=== PATIENT | female | born 1980 | race Caucasian/White ===

== ENCOUNTER 2020-10-08 16:47 | Outpatient (CLI) | payer OTHER, SELFPAY ==
[2020-10-15 15:07] LABS: ALT 20 U/L (6-29); Alpha-2-Macroglobulin 178 mg/dL (106-279); Apolipoprotein A1 168 mg/dL (101-198); Fibrosis Score 0.05; Fibrosis Stage F0; GGT 22 U/L (3-55); Haptoglobin 200 mg/dL (43-212); Necroinflammat Act Grade A0; Total Bilirubin 0.3 mg/dL (0.2-1.2)
== END 2020-10-08 16:48 | disposition home or self-care (01) ==
PROVIDERS: PCP Internal Medicine; Visit Provider Podiatrist Foot & Ankle Surgery
DX: B35.1 Tinea unguium (principal)
CPT/HCPCS: 36415; 81596

== ENCOUNTER 2021-04-08 15:54 | Outpatient (CLI) | payer OTHER, SELFPAY ==
--- NOTE | ~2021-04-08 | US_ITS ---
EXAMINATION: US pelvic complete w TV DATE: 04/08/2021 16:56 INDICATION: Abnormal uterine bleeding Comparison:No prior studies for comparison. TECHNIQUE: Multiple transabdominal and endovaginal sonographic images of the pelvis performed. FINDINGS: The uterus measures 12.3 x 4.8 x 7.2 cm. The endometrial complex measures 9 mm. The right ovary measures 2.2 x 1.3 x 1.9 cm and the left ovary measures 2.1 x 1.4 x 1.4 cm. There ar e small follicles in each ovary. Normal doppler signal in both ovaries. There is no free fluid in the pelvis. There are no abnormal masses seen on either side. IMPRESSION: 1. Enlarged uterus. Otherwise, unremarkable pelvic ultrasound. Reviewed, dictated and finalized at location A.
[2021-04-08 17:17] LABS: Hematocrit 33.2 % (37.0-47.0); Hemoglobin 10.4 g/dL (12.0-15.0); Mean Corpuscular HGB Conc 31.3 g/dl (32-36); Mean Corpuscular Hemoglobin 25.5 pg (26-34); Mean Corpuscular Volume 81.4 fl (80-100); Mean Platelet Volume 9.8 fl (7.4-10.4); Platelet Count Result 356 k/mm3 (150-375); Red Blood Count 4.08 M/mm3 (4.2-5.4); Red Cell Distribution Width 13.5 % (11.5-14.5)
[2021-04-08 17:58] LABS: Thyroid Stimulating Hormone 0.916 uIU/mL (0.465-4.680)
[2021-04-08 18:20] LABS: Free T4 Free Thyroxine 0.97 ng/mL (0.78-2.19)
== END 2021-04-08 15:55 | disposition home or self-care (01) ==
PROVIDERS: PCP Internal Medicine; Visit Provider Nurse Practitioner
DX: N93.8 Other specified abnormal uterine and vaginal bleeding (principal); N85.2 Hypertrophy of uterus
CPT/HCPCS: 36415; 76830; 76856; 84439; 84443; 85027

== ENCOUNTER 2023-01-19 06:54 | Outpatient (CLI) | payer OTHER, SELFPAY ==
[2023-01-19 07:37] LABS: Hemoglobin 11.9 g/dL (12.0-15.0); Mean Corpuscular HGB Conc 31.3 g/dl (32-36); Mean Corpuscular Hemoglobin 26.2 pg (26-34); Mean Corpuscular Volume 83.5 fl (80-100); Mean Platelet Volume 9.8 fl (7.4-10.4); Platelet Count Result 306 k/mm3 (150-375); Red Blood Count 4.55 M/mm3 (4.2-5.4); Red Cell Distribution Width 13.9 % (11.5-14.5); White Blood Count 7.6 K/mm3 (4.5-10.0)
[2023-01-19 07:46] LABS: Alanine Aminotransferase 68 U/L (6-35); Albumin Level 4.5 g/dL (3.5-5.1); Alkaline Phosphatase 88 U/L (38-126); Anion Gap 6 mmol/L (8-16); Aspartate Amino Transferase 49 U/L (14-36); Bilirubin,Total 0.6 mg/dL (0.2-1.3); Blood Urea Nitrogen 18 mg/dL (7-17); Calcium 9.1 mg/dL (8.4-10.2); Carbon Dioxide 29 mmol/L (22-30); Chloride 104 mmol/L (98-107); Cholesterol 196 mg/dL (0-200); Estimated Glomerular Filt Rate > 60; Glucose 128 mg/dL (65-110); HDL Direct 49 mg/dL; Potassium 4.4 mmol/L (3.4-5.0); Sodium 139 mmol/L (137-145); Triglycerides 126 mg/dL (<150)
[2023-01-19 07:56] LABS: LDL Cholesterol Direct 114 mg/dL
[2023-01-19 08:11] LABS: Hemoglobin A1C 6.7 % (<5.7)
[2023-01-19 08:16] LABS: Thyroid Stimulating Hormone 0.866 uIU/mL (0.465-4.680)
[2023-01-19 08:29] LABS: Free T4 Free Thyroxine 1.07 ng/mL (0.78-2.19); Vitamin D 25 Hydroxy 29.6 ng/mL
== END 2023-01-19 06:55 | disposition home or self-care (01) ==
LOC: ANHLAB 06:57
PROVIDERS: PCP Internal Medicine; Visit Provider Obstetrics & Gynecology Gynecology
DX: Z01.419 Encounter for gynecological examination (general) (routine) without abnormal findings (principal)
CPT/HCPCS: 36415; 80053; 80061; 82306; 82607; 83036; 84439; 84443; 85027

== ENCOUNTER 2023-02-22 07:58 | Outpatient (CLI) | payer OTHER, SELFPAY ==
--- NOTE | ~2023-02-22 | MM_ITS ---
EXAMINATION: MM screening germania BI w mario HISTORY: Screening mammogram, family history of breast cancer in her mother. TECHNIQUE: Craniocaudal and mediolateral oblique 3-D tomosynthesis images were obtained and synthetic 2-D images were generated. CAD analysis was submitted and interpreted. COMPARISON: 05/18/2019, 01/20/2016, 01/11/2015, 01/02/2015 BREAST PARENCHYMAL COMPOSITION: There are scattered areas of fibroglandular density. FINDINGS: There is stable focal asymmetry in the posterior third of the right breast. No suspicious m ass, calcification, or architectural distortion are identified in either breast to suggest malignancy . There has been no suspicious interval change. IMPRESSION: 1. No mammographic evidence of malignancy. 2. Recommend routine screening mammography in one year. BI-RADS Category 2: Benign finding(s). Reviewed, dictated and finalized at location A.
== END 2023-02-22 07:59 | disposition home or self-care (01) ==
LOC: ANHIMG 08:00
PROVIDERS: PCP Internal Medicine; Visit Provider Obstetrics & Gynecology Gynecology
DX: Z12.31 Encounter for screening mammogram for malignant neoplasm of breast (principal)
CPT/HCPCS: 77063; 77067

== ENCOUNTER 2024-08-19 06:54 | Outpatient (CLI) | payer OTHER, SELFPAY ==
[2024-08-19 08:12] LABS: Basophils Percent Auto 0.5 % (0.2-1.2); Eosinophils Absolute Auto 0.3 K/mm3 (0-0.3); Eosinophils Percent Auto 3.5 % (0-4.4); Hematocrit 39.8 % (37.0-47.0); Hemoglobin 11.8 g/dL (12.0-15.0); Immature Granulocyte Absolute 0.03 K/mm3 (0.00-0.031); Immature Granulocyte Percent A 0.4 % (0-0.5); Lymphocytes Absolute Auto 2.82 K/mm3 (0.9-3.2); Lymphocytes Percent Auto 36.1 % (18.3-44.2); Mean Corpuscular HGB Conc 29.6 g/dl (32-36); Mean Corpuscular Volume 77.4 fl (80-100); Mean Platelet Volume 9.9 fl (7.4-10.4); Monocytes Absolute Auto 0.7 K/mm3 (0.1-0.6); Monocytes Percent Auto 8.3 % (2.6-8.5); Neutrophils Percent Auto 51.2 % (45.5-73.1); Platelet Count Result 367 k/mm3 (150-375); Red Blood Count 5.14 M/mm3 (4.2-5.4); Red Cell Distribution Width 16.7 % (11.5-14.5); White Blood Count 7.8 K/mm3 (4.5-10.0)
[2024-08-19 08:27] LABS: Alanine Aminotransferase 38 U/L (6-35); Albumin Level 4.7 g/dL (3.5-5.1); Alkaline Phosphatase 88 U/L (38-126); Anion Gap 10 mmol/L (4-12); Aspartate Amino Transferase 33 U/L (14-36); Bilirubin,Total 0.2 mg/dL (0.2-1.3); Blood Urea Nitrogen 18 mg/dL (7-17); Calcium 9.6 mg/dL (8.4-10.2); Carbon Dioxide 28 mmol/L (22-30); Chloride 102 mmol/L (98-107); Cholesterol 218 mg/dL (0-200); Estimated Glomerular Filt Rate > 60; Glucose 146 mg/dL (65-110); HDL Direct 52 mg/dL; Potassium 4.6 mmol/L (3.4-5.0); Sodium 140 mmol/L (137-145); Triglycerides 85 mg/dL (<150)
[2024-08-19 08:37] LABS: LDL Cholesterol Direct 126 mg/dL
[2024-08-19 08:56] LABS: Hypochromasia 1+; Platelet Estimate Adequate (Adequate); Schistocytes None Seen
[2024-08-19 09:01] LABS: Iron 29 ug/dL (37-170)
[2024-08-19 09:10] LABS: Percent Iron Saturation 6 % (20-50)
[2024-08-19 09:30] LABS: Hemoglobin A1C 7.2 % (<5.7)
[2024-08-19 09:57] LABS: Thyroid Stimulating Hormone 0.783 uIU/mL (0.465-4.680)
[2024-08-19 10:10] LABS: Creatinine Urine 185.3 mg/dL
[2024-08-19 10:17] LABS: MALB Creatinine Ratio 4.5 mg/g (0-30); Microalbumin Urine Random 8.4 mg/L (0-16.7)
[2024-08-21 17:03] LABS: Ferritin 5.59 ng/mL (6.24-137)
[2024-08-21 17:28] LABS: Vitamin D 25 Hydroxy 22.2 ng/mL
== END 2024-08-19 06:55 | disposition home or self-care (01) ==
LOC: ANHLAB 06:56
PROVIDERS: PCP Nurse Practitioner; Visit Provider Nurse Practitioner
DX: D64.9 Anemia, unspecified (principal); E11.9 Type 2 diabetes mellitus without complications; G47.19 Other hypersomnia; R53.83 Other fatigue
CPT/HCPCS: 36415; 80053; 80061; 82043; 82306; 82728; 83036; 83540; 83550; 84443; 85025

== ENCOUNTER 2024-11-02 16:38 | Outpatient (CLI) | payer OTHER, SELFPAY ==
--- NOTE | ~2024-11-02 | MM_ITS ---
EXAMINATION: MM screening germania BI w mario HISTORY: Screening TECHNIQUE: Craniocaudal and mediolateral oblique 3-D tomosynthesis images were obtained and synthetic 2-D images were generated. CAD analysis was submitted and interpreted. COMPARISON: Comparison to multiple prior studies sequentially, with oldest reviewed study dated 10/2014. BREAST PARENCHYMAL COMPOSITION: Not dense: There are scattered areas of fibroglandular density. FINDINGS: There is a new mass in the upper outer quadrant of the left breast, middle third. The right breast is stable without evidence for malignancy. IMPRESSION: 1. New left breast mass. 2. Additional mammographic views and possible breast ultrasound are recommended. BI-RADS Category 0: Incomplete: Needs additional imaging evaluation. Reviewed, dictated and finalized at location A. L OPERATOR IMPRESSION: 1. New left breast mass. 2. Additional mammographic views and possible breast ultrasound are recommended . BI-RADS Category 0: Incomplete: Needs additional imaging evaluation.
--- OUTSIDE RECORDS SUMMARY | 2024-11-02 16:40 | XMS_ITS | Clinical Summary ---
Author Organization [facility] Address [address] [place] [address]. [place], [place] [address] [place] [address] Care Team Providers Care Manager Paper Name Role Phone Unavailable Primary Care Provider Unavailabl e Social History Tobacco Use Types Packs/Day Years Used Date Smoking Tobacco: Never Assessed Comments Unknown Sex and Gender Information Value Date Recorded Sex Assigned at Not on file Legal Sex Female 5:49 PM CDT Gender Identity Not on file Sexual Orientation Not on file Last Filed Vital Signs Vital Sign Reading Time Taken Comments Blood Pressure 112/74 10/03/2012 8:00 AM LOAD OUT SUPERVISOR Pulse 63 10/03/2012 8:00 AM LOAD OUT SUPERVISOR Temperature - - Respiratory Rate - - Oxygen Saturation - - Inhaled Oxygen Concentration - - Weight 103.4 kg (228 lb) 10/03/2012 8:00 AM LOAD OUT SUPERVISOR Height - - Body Mass Index - - Plan of Treatment Health Maintenance Due Date Last Done Comments Cervical Cancer Screening Pa p Smear (Age 30 to 64) Every 3 Years 1978 Colorectal Cancer Screening Colonoscopy (10 Years) 1978 Annual Physical 1981 Hepatitis C 1996 DTaP, Tdap and Td Vaccines ( 1 - Tdap) 1997 Hepatitis B Vaccines (1 of 3 - 19+ 3-dose series) 1997 Cervical Cancer Screening Pa p with HPV Testing (Age 30 to 64) Every 5 Years 2008 Cervical Cancer Screening with HPV 2008 Mammogram Screening 2018 COVID-19 Vaccine ( - 2023-2 5 season) 2024 Influenza Adult (#1) 2024 HPV Vaccines Aged Out No longer eligi ble based on patient's age to complete this topic Meningococcal B Vaccine Aged Out No l onger eligible based on patient's age to complete this topic Meningococcal Vaccine Aged Out No amarjit chastity eligible based on patient's age to complete this topic Pneumococcal Vaccine: Pediat rics (0 to 5 Years) and At-Risk Patients (6 to 64 Years) Aged Out No longer eligible b ased on patient's age to complete this topic RSV Immunizations Under 20 Months Aged Out No longer eligible based on patient's age to complete this topic
--- OUTSIDE RECORDS SUMMARY | 2024-11-02 16:40 | XMS_ITS | Clinical Summary ---
Author Organization [facility] [address] Address [address] [place] [address] Care Team Providers Care Ekg Manager Name Role Phone Domingo Robertson MD Primary Care Provider +1- [phone] Allergies No known active allergies Medications No known medications Active Problems Problem Noted Date Diagnosed Date LBBB (left bundle branch block) 12/27/2017 Assessment & Plan (12/27/2017 10:59 AM CDT): Order echocardiogram to assess systolic function. I informed patient that every few years that she needs to repeat an echocardiogram to make sure that her systolic function is intact. 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 Overview (01/06/2017): NONTOX NODUL GOITER NOS Surgical History Surgery Date Site/Laterality Comments CHOLECYSTECTOMY 10/04/2006 - 10/03/2007 Cholecystectomy CHOLECYSTECTOMY 10/04/2006 - 10/03/2007 Cholecystectomy SECTION Medical History Medical History Date Comments Left bundle branch block Family History Medical History Relation Name Comments Thyroid disease Other 1 Family histo ry of Thyroid disorder; Other Other 2 No family histo ry of Diabetes mellitus; Thyroid disease Other 3 Family histo ry of Thyroid disorder; Other Other 4 No family histo ry of Diabetes mellitus; Relation Name Status Comments Other 1 Other 2 Other 3 Other 4 Social History Tobacco Use Types Packs/Day Years Used Date Smoking Tobacco: Former Cigarettes Q uit: 03/04/2017 Smokeless Tobacco: Never Alcohol Use Standard Drinks/Week Comments No 0 (1 standard drink = 0.6 oz pur e alcohol) Comments Unknown Sex and Gender Information Value Date Recorded Sex Assigned at Not on file 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 Gender Identity Not on file Sexual Orientation Not on file Obstetrics History Last Filed Vital Signs Vital Sign Reading Time Taken Comments Blood Pressure 142/86 12/27/2017 10:29 AM CDT Pulse 96 12/27/2017 10:29 AM CDT Temperature - - Respiratory Rate - - Oxygen Saturation 98% 12/27/2017 10:29 AM CDT Inhaled Oxygen Concentration - - Weight 106.1 kg (234 lb) 01/14/2018 1:01 PM CDT Height 167.6 cm (5' 6 ) 01/14/2018 1:01 PM CDT Body Mass Index 37.77 01/14/2018 1:01 PM CDT Plan of Treatment [place] [id number] [facility] PL[facility] Care Teams Ekg Manager Relationship Specialty Start Date End Date Domingo Robertson MD [address] [place] [id number] PCP - General Internal Medicine 12/27/17
--- OUTSIDE RECORDS SUMMARY | 2024-11-02 16:40 | XMS_ITS | Referral Summary ---
Author Organization [facility] [address] Address [address] [place] [address] Care Team Providers Care Auto Heater Mechanic Name Role Phone Domingo Robertson MD Primary Care Provider +1- [phone] Allergies No known active allergies Medications No [...] 02/17/2014 Overview (01/06/2017): NONTOX NODUL GOITER NOS Social History Tobacco Use Types Packs/Day Years Used Date Smoking Tobacco: Former Cigarettes Q uit: 03/04/2017 Smokeless Tobacco: Never Alcohol Use Standard Drinks/Week Comments No 0 (1 standard drink = 0.6 oz pur e alcohol) Comments Unknown Sex and Gender Information Value Date Recorded Sex Assigned at Not on file Legal Sex Female 1:39 AM FOURTH HAND Gender Identity Not on file Sexual Orientation [...] Plan of Treatment Not on file Insurance [facility] [address] [place] [id number] Care Teams Auto Heater Mechanic Relationship Specialty Start Date End Date Domingo Robertson MD [address] [facility] [address] [place], [place] [phone] PCP - General Internal Medicine 12/27/17
== END 2024-11-02 16:39 | disposition home or self-care (01) ==
PROVIDERS: Visit Provider Nurse Practitioner
DX: Z12.31 Encounter for screening mammogram for malignant neoplasm of breast (principal); R92.8 Other abnormal and inconclusive findings on diagnostic imaging of breast
CPT/HCPCS: 77063; 77067

== ENCOUNTER 2024-11-20 12:37 | Outpatient (CLI) | payer OTHER, SELFPAY ==
--- NOTE | ~2024-11-20 | MMUS_ITS ---
EXAMINATION: MM diagnostic germania LT w mario, US breast LT limited HISTORY: Follow-up left breast mass TECHNIQUE: Additional 3-D tomosynthesis images of the left breast were performed and synthetic 2-D im ages were generated. CAD analysis was submitted and interpreted. High resolution Limited left breast ultrasound was performed. COMPARISON: Comparison to multiple prior studies sequentially, with oldest reviewed study dated 10/2014. BREAST PARENCHYMAL COMPOSITION: Not dense: There are scattered areas of fibroglandular density. FINDINGS: MAMMOGRAPHIC FINDINGS: There is a radiolucent mass in the upper outer quadrant of the left breast, middle third, most likely benign. No suspicious calcifications or architectural distortion. ULTRASOUND: Limited left breast ultrasound: At 3:00, 3 cm from the nipple there is a 8 mm cyst corresponding to t he mammographic finding. No suspicious masses to suggest malignancy. IMPRESSION: 1. No evidence for malignancy in the left breast. Benign finding. 2. Routine yearly screening mammogram and regular clinical breast examination are recommended. BI-RADS Category 2: Benign finding(s). Reviewed, dictated and finalized at location B. SHIFTER IMPRESSION: 1. No evidence for malignancy in the left breast. Benign finding. 2. Routine yearly screening mammogram and regular clinical breast examination a re recommended. BI-RADS Category 2: Benign finding(s).
--- OUTSIDE RECORDS SUMMARY | 2024-11-20 15:05 | XMS_ITS | Clinical Summary ---
Author Organization [facility] [address] Address [address] [place] [address] Care Team Providers Care Wholesale Account Executive Name Role Phone Domingo Robertson MD Primary Care Provider +1- [phone] Allergies No known active allergies Medications No [...] on file Legal Sex Female 1:39 AM THROW OUT CLERK Gender Identity Not on file Sexual Orientation [...] Treatment [place] [phone] [facility] CHOICE PLUS [facility] H[facility]/PPO Address: [facility] [address] [place] [address] Care Teams Wholesale Account Executive Relationship Specialty Start Date End Date Domingo Robertson MD [address] [place] [id number] PCP - General Internal Medicine 12/27/17
--- OUTSIDE RECORDS SUMMARY | 2024-11-20 15:05 | XMS_ITS | Clinical Summary ---
Author Organization [facility] Address [address] [place] [address] Care Team Providers Care Vocal Music Teacher Name Role Phone Unavailable Primary Care Provider [...] Comments Blood Pressure 112/74 10/03/2012 8:00 AM OVEN BAKER Pulse 63 10/03/2012 8:00 AM OVEN BAKER Temperature - - Respiratory Rate - - Oxygen Saturation - - Inhaled Oxygen Concentration - - Weight 103.4 kg (228 lb) 10/03/2012 8:00 AM OVEN BAKER Height - - Body Mass Index - [...]
--- OUTSIDE RECORDS SUMMARY | 2024-11-20 15:05 | XMS_ITS | Referral Summary ---
Author Organization [facility] [address] Address [address] [place] [address] Care Team Providers Care Spool Fixer Name Role Phone Domingo Robertson MD Primary Care Provider +1- [phone] Allergies No known active allergies Medications No [...] on file Legal Sex Female 1:39 AM STRAIGHTENER AND ALIGNER Gender Identity Not on file Sexual Orientation [...] Plan of Treatment Not on file Insurance [facility] [place] [id number] Care Teams Spool Fixer Relationship Specialty Start Date End Date Domingo Robertson MD [address] [facility] [address] [place], [place] [phone] PCP - General Internal Medicine 12/27/17
== END 2024-11-20 12:38 | disposition home or self-care (01) ==
LOC: ANHIMG 12:41
PROVIDERS: PCP Nurse Practitioner; Visit Provider Nurse Practitioner Women's Health
DX: R92.8 Other abnormal and inconclusive findings on diagnostic imaging of breast (principal)
CPT/HCPCS: 76642; 77061; 77065; G0279

== ENCOUNTER 2025-01-06 07:04 | Outpatient (CLI) | payer OTHER, SELFPAY ==
--- OUTSIDE RECORDS SUMMARY | 2025-01-06 07:09 | XMS_ITS | Clinical Summary ---
Author Organization [facility] [address] Address [address] [place] [address] Care Team Providers Care Art Museum Docent Name Role Phone Domingo Robertson MD Primary Care Provider +1- [phone] Allergies No known active allergies Medications No [...] on file Legal Sex Female 1:39 AM ERGONOMICS TECHNICIAN Gender Identity Not on file Sexual Orientation [...] Treatment [place] [id number] [facility] CHOICE PLUS Care Teams Art Museum Docent Relationship Specialty Start Date End Date Domingo Robertson MD [address] [place] [address] PCP - General Internal Medicine 12/27/17
--- OUTSIDE RECORDS SUMMARY | 2025-01-06 07:09 | XMS_ITS | Referral Summary ---
Author Organization [facility] [address] Address [address] [place] [address] Care Team Providers Care Industrial Arts Teacher Name Role Phone Domingo Robertson MD Primary Care Provider +1- [phone] Allergies No known active allergies Medications No [...] on file Legal Sex Female 1:39 AM WHEEL MOLDER Gender Identity Not on file Sexual Orientation [...] Plan of Treatment Not on file Insurance [facility] [place] [id number] Care Teams Industrial Arts Teacher Relationship Specialty Start Date End Date Domingo Robertson MD [address] [facility] [address] [place], [place] [phone] PCP - General Internal Medicine 12/27/17
--- OUTSIDE RECORDS SUMMARY | 2025-01-06 07:09 | XMS_ITS | Clinical Summary ---
Author Organization [facility] Address [address] [place] [address] Care Team Providers Care Information Technology Director Name Role Phone Unavailable Primary Care Provider [...] Comments Blood Pressure 112/74 10/03/2012 8:00 AM ACUPUNCTURIST Pulse 63 10/03/2012 8:00 AM ACUPUNCTURIST Temperature - - Respiratory Rate - - Oxygen Saturation - - Inhaled Oxygen Concentration - - Weight 103.4 kg (228 lb) 10/03/2012 8:00 AM ACUPUNCTURIST Height - - Body Mass Index - [...] 5 season) 2024 Influenza Adult (#1) 2024 Meningococcal B Vaccine Aged Out No l [...]
[2025-01-06 07:44] LABS: Basophils Percent Auto 0.3 % (0.2-1.2); Eosinophils Absolute Auto 0.2 K/mm3 (0-0.3); Eosinophils Percent Auto 3.3 % (0-4.4); Hematocrit 44.5 % (37.0-47.0); Hemoglobin 14.4 g/dL (12.0-15.0); Immature Granulocyte Absolute 0.02 K/mm3 (0.00-0.031); Immature Granulocyte Percent A 0.3 % (0-0.5); Lymphocytes Absolute Auto 2.23 K/mm3 (0.9-3.2); Lymphocytes Percent Auto 35.4 % (18.3-44.2); Mean Corpuscular HGB Conc 32.4 g/dl (32-36); Mean Corpuscular Hemoglobin 28.4 pg (26-34); Mean Corpuscular Volume 87.8 fl (80-100); Mean Platelet Volume 9.5 fl (7.4-10.4); Monocytes Absolute Auto 0.6 K/mm3 (0.1-0.6); Neutrophils Absolute Auto 3.3 K/mm3 (1.3-6.7); Neutrophils Percent Auto 51.7 % (45.5-73.1); Platelet Count Result 246 k/mm3 (150-375); Red Blood Count 5.07 M/mm3 (4.2-5.4); Red Cell Distribution Width 15.5 % (11.5-14.5); White Blood Count 6.3 K/mm3 (4.5-10.0)
[2025-01-06 07:53] LABS: Alanine Aminotransferase 40 U/L (6-35); Albumin Level 4.6 g/dL (3.5-5.1); Alkaline Phosphatase 87 U/L (38-126); Anion Gap 6 mmol/L (4-12); Aspartate Amino Transferase 28 U/L (14-36); Bilirubin,Total 0.6 mg/dL (0.2-1.3); Blood Urea Nitrogen 20 mg/dL (7-17); Calcium 9.3 mg/dL (8.4-10.2); Carbon Dioxide 32 mmol/L (22-30); Chloride 103 mmol/L (98-107); Estimated Glomerular Filt Rate > 60; Glucose 137 mg/dL (65-110); Potassium 4.4 mmol/L (3.4-5.0); Sodium 141 mmol/L (137-145)
[2025-01-06 08:05] LABS: Hemoglobin A1C 6.6 % (<5.7)
== END 2025-01-06 07:05 | disposition home or self-care (01) ==
LOC: ANHLAB 07:07
PROVIDERS: PCP Nurse Practitioner; Visit Provider Nurse Practitioner
DX: E11.9 Type 2 diabetes mellitus without complications (principal); D64.9 Anemia, unspecified
CPT/HCPCS: 36415; 80053; 82728; 83036; 85025

== ENCOUNTER 2025-04-21 07:03 | Outpatient (CLI) | payer OTHER, SELFPAY ==
--- OUTSIDE RECORDS SUMMARY | 2025-04-21 07:06 | XMS_ITS | Clinical Summary ---
Author Organization [facility] Address [address] [place] [address] Care Team Providers Care Tankage Grinder Name Role Phone Unavailable Primary Care Provider [...] Comments Blood Pressure 112/74 10/03/2012 8:00 AM CLINICAL RESEARCH NURSE COORDINATOR Pulse 63 10/03/2012 8:00 AM CLINICAL RESEARCH NURSE COORDINATOR Temperature - - Respiratory Rate - - Oxygen Saturation - - Inhaled Oxygen Concentration - - Weight 103.4 kg (228 lb) 10/03/2012 8:00 AM CLINICAL RESEARCH NURSE COORDINATOR Height - - Body Mass Index - [...] HPV 2008 Mammogram Screening 2018 COVID-19 Vaccine (2023-2 5 season) 2024 Meningococcal B Vaccine Aged Out No l onger eligible based on patient's age to complete this topic Meningococcal Vaccine Aged Out No amarjit chastity eligible based on patient's age to complete this topic Pneumococcal Vaccine: Pediat rics (0 to 5 Years) and At-Risk Patients (6 to 49 Years) Aged Out No longer eligible b ased on patient's age to complete this topic RSV Immunizations Under 20 Months Aged Out No longer eligible based on patient's age to complete this topic
--- OUTSIDE RECORDS SUMMARY | 2025-04-21 07:06 | XMS_ITS | Clinical Summary ---
Author Organization [facility] [address] Address [address] [place] [address] Care Team Providers Care Driving Instructor Name Role Phone Domingo oRbertson MD Primary Care Provider +1- [phone] Allergies No known active allergies Medications No [...] on file Legal Sex Female 1:39 AM FISCAL AGENT Gender Identity Not on file Sexual Orientation [...] 1:01 PM CDT Height 167.6 cm (5' 6) 01/14/2018 1:01 PM CDT Body Mass Index 37.77 01/14/2018 1:01 PM CDT Plan of Treatment [place] [phone] [facility] CHOICE PLUS [facility] H[facility]/PPO Address: [facility] [address] [place] [address] Care Teams Driving Instructor Relationship Specialty Start Date End Date Domingo Robertson MD [address] [place] [address] PCP - General Internal Medicine 12/27/17
--- OUTSIDE RECORDS SUMMARY | 2025-04-21 07:06 | XMS_ITS | Referral Summary ---
Author Organization [facility] [address] Address [address] [place] [address] Care Team Providers Care State Historical Society Director Name Role Phone Domingo Robertson MD Primary Care Provider +1- [phone] Allergies No known active allergies Medications No [...] on file Legal Sex Female 1:39 AM TAKE UP SUPERVISOR Gender Identity Not on file Sexual Orientation [...] Plan of Treatment Not on file Insurance [facility] [place] [phone] Care Teams State Historical Society Director Relationship Specialty Start Date End Date Domingo Robertson MD [address] [facility] [address] [place], [place] [phone] PCP - General Internal Medicine 12/27/17
--- OUTSIDE RECORDS SUMMARY | 2025-04-21 07:06 | XMS_ITS | Encounter Summary ---
Author Organization [facility] Address [address] [place] [address] Care Team Providers Care Translator/Interpreter Name Role Phone Naomy Locke MD, Mendel Fernandez Primary Care Provider Domingo Robertson MD Primary Care Provider +1- [phone] Encounter Details Date Type Department Care Team (Late st Contact Info) Description 10/21/2017 Orders Only [facility] Health Information Management [address] [place] [address] Scanning, Provider Social History Tobacco Use Types Packs/Day Years Used Date Smoking Tobacco: Never Assessed Alcohol Use Standard Drinks/Week Comments No 0 (1 standard drink = 0.6 oz pur e alcohol) Comments Unknown Sex and Gender Information Value Date Recorded Sex Assigned at Not on file Legal Sex Female 1:39 AM SERVICE DESK ASSOCIATE Gender Identity Not on file Sexual Orientation Not on file documented as of this encounter Plan of Treatment Not on file documented as of this encounter Procedures Procedure Name Priority Date/Time Associated Diagnosis Comments SCAN - LABS 10/21/2017 documented in this encounter Results * SCAN - LABS (10/21/2017) us Provider Scanning Final Result documented in this encounter Visit Diagnoses Not on filedocumented in this encounter Care Teams Translator/Interpreter Relationship Specialty Start Date End Date Mendel Moralez Jr., MD [address] [place] [address] PCP - General 11/12/10 12/26/17 Domingo Robertson MD [address] [address] PCP - General Internal Medicine 12/27/17 documented as of this encounter
[2025-04-21 08:33] LABS: Hemoglobin A1C 6.5 % (<5.7)
[2025-04-21 09:12] LABS: Alanine Aminotransferase 43 U/L (6-35); Albumin Level 4.5 g/dL (3.5-5.1); Alkaline Phosphatase 79 U/L (38-126); Anion Gap 9 mmol/L (4-12); Aspartate Amino Transferase 34 U/L (14-36); Bilirubin,Total 0.5 mg/dL (0.2-1.3); Blood Urea Nitrogen 19 mg/dL (7-17); Calcium 9.5 mg/dL (8.4-10.2); Carbon Dioxide 27 mmol/L (22-30); Chloride 104 mmol/L (98-107); Cholesterol 196 mg/dL (0-200); Estimated Glomerular Filt Rate > 60; Glucose 142 mg/dL (65-110); HDL Direct 50 mg/dL; Potassium 4.0 mmol/L (3.4-5.0); Sodium 140 mmol/L (137-145); Total Protein 7.8 g/dL (6.3-8.2); Triglycerides 105 mg/dL (<150)
[2025-04-21 16:09] LABS: MALB Creatinine Ratio 5.9 mg/g (0-30)
== END 2025-04-21 07:04 | disposition home or self-care (01) ==
LOC: ANHLAB 07:04
PROVIDERS: PCP Nurse Practitioner; Visit Provider Nurse Practitioner
DX: E11.9 Type 2 diabetes mellitus without complications (principal)
CPT/HCPCS: 36415; 80053; 80061; 82043; 83036